=== PATIENT | male | born 1945 | race Caucasian/White ===

== ENCOUNTER 2023-02-07 15:07 | Outpatient (RCR) | payer OTHER, SELFPAY | END 2023-02-07 23:59 | disposition home or self-care (01) | LOC: RPT 15:07 | PROVIDERS: ATTENDING PHYSICIAN Family Medicine | DX: G40.909 Epilepsy, unspecified, not intractable, without status epilepticus (principal); E22.2 Syndrome of inappropriate secretion of antidiuretic hormone; R53.1 Weakness; W19.XXXD Unspecified fall, subsequent encounter; R41.841 Cognitive communication deficit; R47.1 Dysarthria and anarthria | CPT/HCPCS: 92507; 97110; 97112; 97116; 97530 ==

== ENCOUNTER → 2024-01-12 12:57 | Outpatient (REF) | payer OTHER, SELFPAY | LOC: RAD 12:57 | PROVIDERS: ATTENDING PHYSICIAN Nurse Practitioner Family; FAMILY PHYSICIAN Family Medicine | DX: M79.89 Other specified soft tissue disorders (principal); M79.602 Pain in left arm | CPT/HCPCS: 93971 ==